=== PATIENT | female | born 1940 | race Caucasian/White ===

== ENCOUNTER 2016-07-29 06:06 | Day surgery (SDC) | payer MEDICARE ==
--- NOTE | ~2016-07-29 | EGD ---
EGD REPORT [facility] [address] [address] NAME: MARI UMAÑA : [birth year] [place]US : [place] [facility] [place] [id number] AGE: 75 ADM/REG DATE : 07/29/16 MR#: [id number] REPORT SERV DATE: 07/29/16 DICTATED BY: CAMMIE COLE DATE: 07/29/16 REPORT STATUS : Draft TRANSCRIBED BY: [facility] DATE: 07/29/16 Endoscopy Center Patient Name: Mari Umaña C0x Date of : 1940 Attending MD: CAMMIE COLE MD Procedure Date No Time: 07/29/2016 Procedure: Upper GI endoscopy Indications: Iron deficiency anemia Referring MD: Ml Perales Medicines: Monitored Anesthesia Care Complications: No immediate complications. Procedure: Pre-Anesthesia Assessment: - ASA Grade Assessment: III - A patient with severe systemic disease. After obtaining informed consent, the endoscope was passed under direct vision. Throughout the procedure, the patient's blood pressure, pulse, and oxygen saturations were monitored continuously. The GIF H190 [id number] was introduced through the mouth, and advanced to the second part of duodenum. The upper GI endoscopy was accomplished without difficulty. The patient tolerated the procedure well. Findings: The Z-line was irregular. The entire examined stomach was normal. The duodenal bulb and 2nd part of the duodenum were normal. Biopsies were taken with a cold forceps for histology. The cardia and gastric fundus were normal on retroflexion. Impression: - Z-line irregular,. - Normal stomach. - Normal duodenal bulb and 2nd part of the duodenum. Biopsied. Recommendation: - Patient has a contact number available for emergencies. The signs and symptoms of potential delayed complications were discussed with the patient. Return to normal activities tomorrow. Written discharge instructions were provided to the patient. - Regular diet. - Continue present medications. - Await pathology results. Procedure Code(s): --- Professional --- EGD REPORT [facility] [address] [place], [place] [address]. [address] NAME: MARI UMAÑA C0X : [birth year] STATUS : [place] [facility] [place] PAT#: [id number] AGE: 75 ADM/REG DATE : 07/29/16 MR#: [id number] REPORT SERV DATE: 07/29/16 DICTATED BY: CAMMIE COLE DATE: 07/29/16 REPORT STATUS : Draft TRANSCRIBED BY: [employer] DATE: 07/29/16 [id number], Esophagogastroduodenoscopy, flexible, transoral; with biopsy, single or multiple Diagnosis Code(s): --- Professional --- K22.8, Other specified diseases of esophagus D50.9, Iron deficiency anemia, unspecified CPT copyright 2013 [employer]. All rights reserved. The codes documented in this report are preliminary and upon dehydrogenation supervisor review may be revised to meet current compliance requirements. CAMMIE COLE MD 07/29/2016 8:06 AM This report has been signed electronically. Number of Addenda: 0 Note Initiated On: 07/29/2016 7:50 AM Scope Withdrawal Time 0 hours 0 minutes 0 seconds [address] [facility] [place], [place] [id number]
--- NOTE | ~2016-07-29 | EGD ---
EGD REPORT [facility] [address] [address] NAME: MARI UMAÑA : [birth year] STATUS : REG [facility] [place] PAT#: [id number] AGE: 75 ADM/REG DATE : 07/29/16 MR#: [id number] REPORT SERV DATE: 07/29/16 DICTATED BY: CAMMIE COLE DATE: 07/29/16 REPORT STATUS : Draft TRANSCRIBED BY: [facility] DATE: 07/29/16 Endoscopy Center Patient Name: Mari Umaña C0x Date of : 1940 Attending MD: CAMMIE COLE MD Procedure Date No Time: 07/29/2016 Procedure: Colonoscopy Indications: Abdominal pain in the right lower quadrant, Iron deficiency anemia Referring MD: Ml Perales Medicines: Monitored Anesthesia Care Complications: No immediate complications. Procedure: Pre-Anesthesia Assessment: - ASA Grade Assessment: III - A patient with severe systemic disease. After I obtained informed consent, the scope was passed under direct vision. Throughout the procedure, the patient's blood pressure, pulse, and oxygen saturations were monitored continuously. The PCF [id number] was introduced through the anus and advanced to the terminal ileum, with identification of the appendiceal orifice and IC valve. The colonoscopy was performed without difficulty. The patient tolerated the procedure fairly well. The quality of the bowel preparation was adequate. Findings: The digital rectal exam was normal. Pertinent negatives include no palpable rectal lesions. The terminal ileum appeared normal. A sessile polyp was found in the sigmoid colon. The polyp was 10 mm in size. The polyp was removed with a cold snare. Resection and retrieval were complete. A sessile polyp was found in the descending colon. The polyp was 2 mm in size. The polyp was removed with a cold biopsy forceps. Resection and retrieval were complete. Multiple diverticula were found in the sigmoid colon and in the descending colon. Hemorrhoids were found during retroflexion and were mild. Impression: - The examined portion of the ileum was normal. - One 10 mm polyp in the sigmoid colon. Resected and retrieved. - One 2 mm polyp in the descending colon. Resected and retrieved. - Diverticulosis in the sigmoid colon and in the EGD REPORT [address] [address] NAME: MARI UMAÑA C0X : [birth year] STATUS : REG [facility] [place] PAT#: [id number] AGE: 75 ADM/REG DATE : 07/29/16 MR#: [id number] REPORT SERV DATE: 07/29/16 DICTATED BY: CAMMIE COLE DATE: 07/29/16 REPORT STATUS : Draft TRANSCRIBED BY: [employer] DATE: 07/29/16 descending colon. - Hemorrhoids. Recommendation: - Patient has a contact number available for emergencies. The signs and symptoms of potential delayed complications were discussed with the patient. Return to normal activities tomorrow. Written discharge instructions were provided to the patient. - Regular diet. - Regular diet. - Continue present medications. - Await pathology results. - Repeat colonoscopy for surveillance based on pathology results. - Return to GI clinic in 1 month. Procedure Code(s): --- Professional --- 67167, Colonoscopy, flexible, proximal to splenic flexure; with removal of tumor(s), polyp(s), or other lesion(s) by snare technique 07003, 59, Colonoscopy, flexible, proximal to splenic flexure; with biopsy, single or multiple Diagnosis Code(s): --- Professional --- K64.9, Unspecified hemorrhoids K57.30, Diverticulosis of large intestine without perforation or abscess without bleeding D12.4, Benign neoplasm of descending colon D12.5, Benign neoplasm of sigmoid colon R10.31, Right lower quadrant pain D50.9, Iron deficiency anemia, unspecified CPT copyright 2013 [employer]. All rights reserved. The codes documented in this report are preliminary and upon puller through review may be revised to meet current compliance requirements. CAMMIE COLE MD 07/29/2016 8:24 AM This report has been signed electronically. Number of Addenda: 0 Note Initiated On: 07/29/2016 8:03 AM Scope Withdrawal Time 0 hours 6 minutes 33 seconds EGD REPORT [facility] [address] [address] NAME: MARI UMAÑA C0X : [birth year] STATUS : REG [facility] [place] PAT#: [id number] AGE: 75 ADM/REG DATE : 07/29/16 MR#: [id number] REPORT SERV DATE: 07/29/16 DICTATED BY: CAMMIE COLE DATE: 07/29/16 REPORT STATUS : Draft TRANSCRIBED BY: [facility] DATE: 07/29/16 [address] [address]
[~2016-07-29 06:06] MED LIST: ASAB PO; ATARAX50B PO; BUSPAR10 PO; CELEXA40 MG PO; CYMBALTA30 PO; CYMBALTA60 PO; FERROUS SULF325 M1 PO; FOSAMAX70 MG PO; LIOR10 PO; MULTIPLE VIT PO; NAMENDA10 MG PO; NEUR400 PO; NEUR600 PO; OS500+D PO; PRAVAC PO; PROTONIX PO; VITAMIN D1000 UNI1 PO; WELLXL300 PO; X5 PO; XANAX1 MG PO; ZANTAC150 MG PO; ZOCOR10 PO
== END 2016-07-29 23:59 | disposition home or self-care (01) ==
LOC: DMU 06:06
PROVIDERS: Internal Medicine Gastroenterology
PROC: 0DBN8ZZ Excision of Sigmoid Colon, Via Natural or Artificial Opening Endoscopic (ICD-10-PCS; principal; 2016-07-29 07:30)
PROC: 0DBM8ZZ Excision of Descending Colon, Via Natural or Artificial Opening Endoscopic (ICD-10-PCS; 2016-07-29 07:30)
PROC: 0DB98ZX Excision of Duodenum, Via Natural or Artificial Opening Endoscopic, Diagnostic (ICD-10-PCS; 2016-07-29 07:30)
DX: D12.5 Benign neoplasm of sigmoid colon (principal); D12.4 Benign neoplasm of descending colon; K64.9 Unspecified hemorrhoids; K57.30 Diverticulosis of large intestine without perforation or abscess without bleeding; R10.31 Right lower quadrant pain; D50.9 Iron deficiency anemia, unspecified; K22.8 Other specified diseases of esophagus; F03.90 Unspecified dementia, unspecified severity, without behavioral disturbance, psychotic disturbance, mood disturbance, and anxiety; K21.9 Gastro-esophageal reflux disease without esophagitis; E78.00 Pure hypercholesterolemia, unspecified; Z98.51 Tubal ligation status; Z98.41 Cataract extraction status, right eye; Z98.42 Cataract extraction status, left eye; Z90.89 Acquired absence of other organs; Z98.890 Other specified postprocedural states; F41.9 Anxiety disorder, unspecified; F32.9 Major depressive disorder, single episode, unspecified; M19.90 Unspecified osteoarthritis, unspecified site; M25.551 Pain in right hip; I82.409 Acute embolism and thrombosis of unspecified deep veins of unspecified lower extremity; H40.9 Unspecified glaucoma; J32.9 Chronic sinusitis, unspecified; G62.9 Polyneuropathy, unspecified; R41.3 Other amnesia; Z87.891 Personal history of nicotine dependence; Z88.4 Allergy status to anesthetic agent; Z88.5 Allergy status to narcotic agent; Z79.899 Other long term (current) drug therapy
CPT/HCPCS: 88305; A9270-GY